=== PATIENT | male | born 1950 | race Hispanic/Latino ===

== ENCOUNTER 2016-09-01 14:04 | Emergency (ER) | payer MEDICARE, OTHER ==
[~2016-09-01] VITALS: Ht 172.7 cm; Wt 113.2 kg
[~2016-09-01 14:04] MED LIST: ACET325T51 PO; AMIT10TA6 PO; ASCO125T PO; ASPI-973 PO; BISA-67 PO; CALC-1009 PO; CHOL500011 PO; COCO1000 PO; CYAN500L3 SL; DEXT1DRO8 BOTH_EYES; FERR325T6 PO; FOLI0.8C PO; KEP500TA PO; LISI10TA PO; LORA10CA PO; LOVA10TA PO; MAGN250T29 PO; MELO-253 PO; METH2.5T PO; MULT-1018 PO; NAPR220C11 PO; OMEP10CA4 PO; POLY17PO6 PO; PRAM0.5T10 PO; PRE10 PO; SERT25TA6 PO; UBID100C25 PO; ZONI100C6 PO; [UNRECOGNIZED DRUG - OTHER] PO
[2016-09-01 14:09] VITALS: BP 116/75; PULSE 67; RESP 16; O2SAT 97
--- NOTE | 2016-09-01 15:55 | ED.REPORT ---
HPI-Headache Date of Service Sep 01, 2016 ED Provider: Sathya Guillen PA-C Ross is a 66-year-old male with a history of epilepsy, hypertension, leukemia , brain aneurysm, OH, CVA, sepsis, low back pain who presents with a chief complaint of headache. Patient states that his experience roughly 2 months of headache that waxes and wanes but never completely resolves. His pain was especially bad today prior to presentation. At presentation rates at 2/10. Associated with photophobia. Denies fever, chills, malaise, upper respiratory symptoms, abdominal pain, vomiting. Patient reports a history of similar headaches in 2010 that ended following brain surgery for epilepsy in which an aneurysm ruptured. Nursing Notes Stated Complaint: HEADACHES Chief Complaint: Headache Nursing Notes Reviewed: Yes Allergies: Coded Allergies: latex (Verified Allergy, Severe, RASH, 04/26/16) oxycodone (Verified Allergy, Severe, RASH, 04/26/16) azithromycin (Verified Allergy, Intermediate, 05/02/16) Penicillins (Verified Allergy, Unknown, UNKNOWN, 04/26/16) codeine (Verified Allergy, Unknown, 09/01/16) hydrocodone (Verified Allergy, Unknown, UNKNOWN, 04/26/16) meperidine (Verified Allergy, Unknown, Rash, 04/26/16) SWEATS SEIZURES HALLUCINATES Uncoded Allergies: CHOCOLATE (Adverse Reaction, Severe, PROFUSE SWEATING, 09/13/13) Scheduled ([aloe nutritional liq]) 3 OZ PO DAILY Amitriptyline (Amitriptyline) 10 Mg Tablet 10-30 MG PO HS Ascorbic Acid (Vitamin C) 125 Mg Tab.chew 125 MG PO DAILY Aspirin (Aspirin) 81 Mg Tablet 81 MG PO HS Bisacodyl (Dulcolax) 5 Mg Tablet.dr 5 MG PO QPM Calcium Carbonate/Vitamin D3 (Calcium 600 + Vit D3 800 Tab) 600 Mg-800 Tablet 1 EACH PO DAILY Cholecalciferol (Vitamin D3) (Vitamin D3) 5,000 Unit Tablet 5,000 UNIT PO DAILY Coconut Oil (Coconut Oil) 1,000 Mg Capsule 1,000 MG PO DAILY Cyanocobalamin (Vitamin B-12) (B-12) 500 Mcg Tab.rapdis 500 MCG SL DAILY Dextran 70/Hypromellose/Pf (Artificial Tears Drops) 1 Each Droperette 2-3 DROP BOTH_EYES TID Ferrous Sulfate (Ferrous Sulfate) 325 Mg Tablet.dr 325 MG PO BID Folic Acid (Folic Acid) 0.8 Mg Capsule 0.8 MG PO DAILY Levetiracetam (Keppra) 500 Mg Tablet 1,500 MG PO BID Lisinopril (Lisinopril) 10 Mg Tablet 10 MG PO DAILY Loratadine (Claritin) 10 Mg Capsule 10 MG PO DAILY Lovastatin (Lovastatin) 10 Mg Tablet 10 MG PO HS Magnesium Oxide (Magnesium) 250 Mg Tablet 250 MG PO BID Meloxicam (Meloxicam) 15 Mg Tablet 15 MG PO daily at 1400 Methotrexate Sodium (Methotrexate) 2.5 Mg Tablet 7.5 MG PO every Multivitamin (Multi Vitamin Daily) 1 Each Tablet 1 EACH PO DAILY Omeprazole (Omeprazole) 10 Mg Capsule.dr 10 MG PO DAILY Ondansetron ODT (Ondansetron ODT) 4 Mg Tab.rapdis 4-8 MG PO QID Polyethylene Glycol 3350 (Miralax) 17 Gm Powd.pack 17 GM PO DAILY Pramipexole Dihydrochloride (Pramipexole Dihydrochloride) 0.5 Mg Tablet 0.5 MG PO HS Prednisone (PredniSONE) 10 Mg Tablet 10 MG PO DAILYWM per oncologist Sertraline HCl (Sertraline) 25 Mg Tablet 25 MG PO DAILY Ubidecarenone (Co Q-10) 100 Mg Capsule 100 MG PO DAILY Zonisamide (Zonisamide) 100 Mg Capsule 200 MG PO BID Scheduled PRN Acetaminophen (Acetaminophen) 325 Mg Tablet 325 MG PO Q4H PRN PRN For Fever Naproxen Sodium (Aleve) 220 Mg Capsule 220 MG PO DAILY PRN PRN For Pain General Time Seen by MD: 15:33 Chief Complaint Headache Sudden in Onset?: No Past Medical History Past Medical History Notes: Oncologist Dr Lopez Admitted March 24-2015 with fever, sepsis-but no specific source definitively identified Past Medical History T cell Large granulous leukemia, on chemo for 16 years (on methotrexate and tapered prednisone) Epilepsy CVA OH HTN Diverticulitis Hiatal hernia Arthritis Chronic lumbar back pain Depression Enlarged prostate Past Surgical History Temporal lobe surgery Bilateral knee replacement TURP Smoking History Former Smoker, Never Smoker Social History Alcohol Use: Denies alcohol use Drug Use: Denies drug use Ambulatory Status Independent Review of Systems General: Denies fever, chills, malaise. HEENT: Admits headache. Denies congestion, sore throat. Respiratory: Denies dyspnea, cough, shortness of breath, wheezing. Cardiovascular: Denies chest pain, palpitations. Gastrointestinal: Denies vomiting, diarrhea, abdominal pain. Otherwise as noted in HPI. Physical Exam General: Well appearing, well developed, well nourished, no acute distress. Head: Atraumatic, normocephalic. No tenderness over temples. Eyes: No scleral icterus or injection. No discharge. Vision grossly intact. ENT: Voice clear, hearing grossly intact. Respiratory: Regular rate and rhythm. Breath sounds present, clear to auscultation and equal bilaterally. No respiratory distress. No increased work of breathing, speaks in complete sentences. Cardiovascular: Regular rate and rhythm, without murmur, gallop or rub. No pedal edema. Gastrointestinal: Abdomen flat and non-tender without guarding or rebound. Bowel sounds normoactive. Skin: Warm and dry. Neurological: Normal gait, heel walk, toe walk, Romberg. Negative pronator drift. Mild ataxia walking heel to toe. Cranial nerves: Vision grossly intact, PERRL, EOMI. Facial motion symmetrical, sensation to light touch over forehead, maxilla and mandible present and equal B /L. Voice clear and fluent, no drooling/pooling of saliva, uvula rises midline. Psychological: Alert and oriented. Speech appropriate, linear and logical. Behavior appropriate. Initial Vital Signs Vital Signs (First) Date Time Temp Pulse Resp B/P Pulse Ox O2 Delivery O2 Flow Rate FiO2 09/01/16 14:09 36.0 67 16 116/75 97 Room Air Initial VS: Reviewed, Vital signs normal Interpretation & Diagnostics Lab Results Interpretation Result Diagram: 09/01/16 1632 09/01/16 1632 Test 09/01/16 16:32 White Blood Count 5.5th/mm3 (3.8-10.1) Red Blood Count 4.21mil/mm3 (4.40-5.80) Hemoglobin 13.4g/dL (13.8-17.2) Hematocrit 39.9% (41.0-50.0) Mean Corpuscular Volume 94.8fL (81-100) Mean Corpuscular Hemoglobin 31.8pg (27.0-35.0) Mean Corpuscular Hemoglobin Concent 33.6% (32.0-37.0) Red Cell Distribution Width 13.9% (12.3-15.4) Platelet Count 161bil/L (150-400) Neutrophils (%) (Auto) 46.3% (40-74) Lymphocytes (%) (Auto) 41.9% (14-46) Monocytes (%) (Auto) 10.5% (4-12) Eosinophils (%) (Auto) 0.9% (0-5) Basophils (%) (Auto) 0.2% (0-3) Sodium Level 137mEq/L (134-144) Potassium Level 4.2mEq/L (3.5-5.2) Chloride Level 102mEq/L (97-108) Carbon Dioxide Level 24mmol/L (18-29) Blood Urea Nitrogen 18mg/dL (8-27) Creatinine 0.81mg/dL (0.76-1.27) Estimat Glomerular Filtration Rate 101mL/min (>59) Glucose Level 100mg/dL (60-99) Calcium Level 9.3mg/dL (8.5-10.1) Hold Rosales Top Tube Received (Received) CT Head Interpretation PROCEDURE: CT BRAIN WITHOUT CONTRAST INDICATIONS: headache IMPRESSION: No acute intracranial abnormality identified. Re-Eval/Medical Decision Med Decision/Clinical Course Discussed the case with Dr. Arnold met with and examined the patient. 66-year-old male presents with a chief complaint of headache. Reports the headache is insidious in onset and has been waxing and waning in intensity over the last 2 months. He suffered an especially bad episode today and decided to come the emergency Department. CT of the brain is normal. Neurological examination is normal. CBC reveals slight anemia and BMP is within acceptable limits. This point I believe a intracranial mass or subarachnoid hemorrhage is highly unlikely. I have low concern for stroke. Patient responded well to 1 L normal saline, metoclopramide and 1000 mg of acetaminophen. He reports complete resolution of his headache. I discussed our findings and believe that we have ruled out immediately dangerous causes of headache with the patient and his . I advised primary care follow-up and gave return precautions. The patient and his understand and her couple with the plan. Discharge & Departure Impression: Primary Impression: Headache Headache type: unspecified Headache chronicity pattern: unspecified pattern Intractability: not intractable Qualified Code: R51 - Headache Disposition: Home Discharge Condition All VS Reviewed: Yes Condition: Stable Patient Instructions: Acute Headache (ED) Additional Instructions: Evaluation in the emergency department for headache. CT scan of the brain was normal. Your neurological examination was also normal. This is reassuring that her headache is unlikely to be caused by bleeding in the brain, mass or stroke. While it we do not know why you had a headache, I believe we have ruled out the immediately dangerous causes headache. Please follow up with your primary care provider as soon as possible to continue investigating.The pain is best treated with 400 mg of ibuprofen (Advil, Motrin) every 6 hours, or 1000 mg of acetaminophen (Tylenol) every 6 hours. These drugs can be taken at the same time for more severe pain. Return to emergency department for any new or worsening symptoms including any different headache, sudden or severe headache, neurological changes. Referrals: Javy Canseco MD (PCP) EDSupervising Provider for APC: Marc Arnold MD Attending Statement I discussed patient with KIERRA Guillen. I was asked to evaluate patient and I saw and evaluated patient independently. In brief, 66-year-old male presenting with 2 months of headaches. No neuro deficits. Normal neurological exam. History of aneurysms in the past. No fevers or meningeal signs symptoms. CT brain is normal. Pain resolved with pain medications. Okay to discharge home with follow-up with primary doctor. Return Precautions given. copies to: Javy Canseco MD, Seth PA-C Sep 01, 2016 15:55 Marc Arnold MD Sep 01, 2016 17:44
[2016-09-01] MEDS ORDERED: 0.9% Sodium Chloride 1,000 ML IV ONE (15:56)
[2016-09-01] MEDS ORDERED: MetoCLOpramide 5 mg/mL 2 mL Inj IVPUSH ONE (16:00)
[2016-09-01] MEDS ORDERED: Acetaminophen IV 1,000 MG in IV Premix 1 EACH IV ONE (16:00)
[2016-09-01 16:37] LABS: BASOPHILS % (AUTO) 0.2 % (0-3); EOSINOPHILS % (AUTO) 0.9 % (0-5); MONOCYTES % (AUTO) 10.5 % (4-12); Mean Corpuscular Hemoglobin 31.8 pg (27.0-35.0); Mean Corpuscular Volume 94.8 fL (81-100); NEUTROPHILS % (AUTO) 46.3 % (40-74); Platelet Count 161 bil/L (150-400)
--- NOTE | 2016-09-01 17:27 | DRSVH ---
PROCEDURE: CT BRAIN WITHOUT CONTRAST INDICATIONS: headache COMPARISON: [facility], CT, CT BRAIN WO CON, 03/25/2016, 1:47. FINDINGS: Prior right temporal parietal craniotomy. Previous scott hole in the left temporal area as well. Area of encephalomalacia involving the right temporal lobe and portion of the parietal lobe with enla rgement of the right lateral ventricle. No acute intracranial abnormality is seen. Mass effect is not evident. No acute loss of huang-white matter interface or evidence for bleeding is seen. IMPRESSION: No acute intracranial abnormality identified. Dictated by: Guru Head M.D. on 09/01/2016 at 17:21 Approved by: Guru Head M.D. on 09/01/2016 at 17:25
[2016-09-01] MEDS ORDERED: ONDA4TAB12 PO (17:44)
[2016-09-01 17:55] VITALS: BP 112/68; PULSE 68; RESP 16; O2SAT 97
[2016-10-25] MEDS ORDERED: COCO120O MC (14:27)
[2016-10-25] MEDS ORDERED: FLAX340P PO (14:27)
[2016-10-25] MEDS ORDERED: BUTA1CAP44 PO (14:30)
[2016-11-30] MEDS ORDERED: LANS30CA14 PO (12:41)
== END 2016-09-01 17:57 | disposition home or self-care (01) ==
LOC: SED 14:04
DX: R51 Headache (principal); I10 Essential (primary) hypertension; C95.90 Leukemia, unspecified not having achieved remission; I25.2 Old myocardial infarction; Z86.73 Personal history of transient ischemic attack (TIA), and cerebral infarction without residual deficits; Z79.82 Long term (current) use of aspirin; Z87.891 Personal history of nicotine dependence; Z91.040 Latex allergy status; Z88.5 Allergy status to narcotic agent; Z88.0 Allergy status to penicillin; Z88.1 Allergy status to other antibiotic agents; Z88.8 Allergy status to other drugs, medicaments and biological substances
CPT/HCPCS: 36415; 70450; 80048; 85025; 96361; 96374; 96375; 99285; G0463; J0131; J2765; J7030

== ENCOUNTER 2016-12-01 13:23 | Day surgery (SDC) | payer MEDICARE, OTHER ==
[~2016-12-01] VITALS: Ht 170.2 cm; Wt 119.8 kg
[~2016-12-01 13:23] MED LIST changes: +COCO120O MC; +FLAX340P PO; +LANS30CA14 PO; +Lactated Ringer's 1,000 ML IV ONE; +ONDA4TAB12 PO
[2016-12-01] MEDS ORDERED: Propofol 10,000 mCg/mL 20 mL Inj ONE (13:24)
[2016-12-01 14:07] VITALS: BP 119/65; PULSE 54; RESP 14; O2SAT 97
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
[2016-12-01 15:34] VITALS: BP 121/73; PULSE 62; RESP 16; O2SAT 98
--- NOTE | 2016-12-01 15:42 | PCM.ENDEGD ---
EGD Date of Service: Dec 01, 2016 Physician Chai Sommers MD Pre Procedure Diagnosis: Melena Post Procedure Dx & Findings: Prominent duodenal fold with duodenal scarring. Healing gastric ulcers and erosions. Healing esophageal ulcer Procedure Esophagogastroduodenoscopy PROCEDURE IN DETAIL: After proper sedation, Olympus video endoscope was inserted into patient's mouth and esophagus was successfully intubated. Scope introduced esophagus. Esophagus showed normal shiny whitish mucosa consistent with squamous cell component. Z line was intact at 40 cm from the incisors. However there was a 3 mm healing esophageal ulcer. This was biopsied. Scope advanced into the stomach. The entire stomach showed atrophy with decreased rugae folds. The antrum, there were multiple healing gastric ulcers which are about at most 5 mm in size. Multiple biopsies taken from the healing ulcers and proximal stomach. There are also some antral deformities. Cardia fundus body antrum pylorus were all visualized. Retroflexion was done. Stomach was easily inflated and deflatable using air. Scope further events to the distal duodenum. Duodenum revealed normal villous structures with normal appearing folds without any mass ulcer erosion. The duodenal bulb, there were some to some deformity from prior ulcers. Prominent folds were noted and these were biopsied. Impression Prominent duodenal fold with duodenal scarring. Healing gastric ulcers and erosions. Healing esophageal ulcer Recommendation Await biopsy Avoid NSAIDs Presedation Assessment Risks and Benefits Informed consent was obtained from the patient after all risks and benefits including but not limited to drug reaction, infection, pain, bleeding, perforation, as well as alternatives were discussed. Patient monitoring Continuous pulse oximetry, cardiac monitoring, blood pressure monitoring, IV access, and oxygen at 2L per nasal cannula. Complications There were no periprocedural complications identified. Post Procedure Plan Post Procedure Recommendations 1. Restrict activities today. 2. Resume normal activities in the morning. 3. Resume medications. 4. GERD behavioral modification: - Avoid fatty, acidic, spicy, large meals - Do not lie down after meals - Do not eat or drink anything for at least 2 1/2 hours before going to bed at night - Discontinue tobacco and alcohol - Decrease or avoid caffeine - Avoid chocolate and mints - Decrease weight - Avoid aspirin and non steroidal anti-inflammatory agents (NSAID) such as Aleve, Advil, Mobic, Naproxen, Ibuprofen, etc 5. Add proton pump inhibitor. Take 30 minutes before 1st meal of the day. 6. Patient informed of normal post procedure side effects as bloating, drowsiness, blood streaking in the stool 7. If gastric biopsy reveal H.pylori, continue with appropriate treatment 8. If small bowel biopsy reveals celiac, continue with appropriate treatment 9. Please don't hesitate to call me with any questions Chai Sommers MD Dec 01, 2016 15:42
--- NOTE | 2016-12-01 15:43 | PCM.ENDCOL ---
Colonoscopy Date of Service: Dec 01, 2016 Physician Chai Sommers MD Pre Procedure Diagnosis: Screening and personal history of colon polyp Post Procedure Dx & Findings: Diverticula hemorrhoids Procedure Colonoscopy PROCEDURE IN DETAIL: Prep adequate Withdrawal time 9 minutes After unremarkable rectal examination the Olympus video colonoscope was inserted patient's anal canal and was advanced to cecum. Landmarks were identified including the ileocecal valve and appendiceal orifice. Scope was withdrawn systematically. Visualized colonic mucosa showed healthy shiny mucosa with normal healthy-appearing vasculature. Multiple diverticuli noted mostly in the sigmoid colon to the right side of the colon. In the rectum retroflexion was done which showed hemorrhoids. Anal canal was inspected carefully on the way out and hemorrhoids noted. Impression Diverticuli Hemorrhoids Personal history of colon polyp Recommendation Repeat colonoscopy 5 years DIverticular diet Presedation Assessment Risks and Benefits Informed consent was obtained from the patient after all risks and benefits including but not limited to drug reaction, infection, pain, bleeding, perforation, as well as alternatives were discussed. Patient monitoring Continuous pulse oximetry, cardiac monitoring, blood pressure monitoring, IV access, and oxygen at 2L per nasal cannula. Complications There were no periprocedural complications identified. Post Procedure Plan Post Procedure Recommendations 1. Restrict activities today. 2. Resume normal activities in the morning. 3. Resume medications. 4. Patient informed of normal post procedure side effects as bloating, drowsiness, blood streaking in the stool. 5. average risk CRCS. If colon polyps come back as: -Hyperplastic- can repeat colonoscopy in 10 years -Tubular adenoma- repeat colonoscopy in 5 years -Tubulovillous/villous adenoma- repeat colonoscopy in 3 years -If any dysplasia- return to clinic as soon as possible 6. Please don't hesitate to call me with any questions. Chai Sommers MD Dec 01, 2016 15:43
[2016-12-01 15:44] VITALS: BP 123/78; PULSE 50; RESP 16; O2SAT 97
[2016-12-01 15:54] VITALS: BP 131/81; PULSE 71; RESP 16; O2SAT 96
--- NOTE | 2016-12-05 17:52 | PATH ---
SURGICAL PATHOLOGY Attending Physician:Chai Sommers M.D. CASE STATUS: Signed Out PATIENT NAME: KATHERINE HEATH JR PID: [id number] : 1950 DATE COLLECTED:12/01/2016 00:00 SPECIMEN: 1: Duodenum, Biopsy 2: Gastric, Biopsy 3: Esophagus, Biopsy CLINICAL HISTORY: MELENA 1). DUODENUM BULB BIOPSY 2). GASTRIC BIOPSY 3). DISTAL ESOPHAGUS BIOPSY FINAL DIAGNOSIS: 1. Duodenal Bulb, Biopsy: Portions of duodenal mucosa with no diagnostic abnormality. Negative for active inflammation, features of sprue, dysplasia or malignancy. 2. Gastric Biopsy: Portion of gastric antral and body-type mucosa with mild chronic gastritis. No definite H. pylori organisms identified by H&E stain. Immunohistochemistry studies pending; results will be reported as an addendum. Negative for intestinal metaplasia, dysplasia and malignancy. 3. Distal Esophagus Biopsy: Squamocolumnar junctional mucosa with no diagnostic abnormality. Negative for intestinal metaplasia. Negative for dysplasia and malignancy. ICD10: K29.7 GROSS DESCRIPTION: The specimen is received in three formalin filled containers labeled with the patient's name. 1). The specimen is sublabeled "duodenum bulb" and consists of 2 portions of tissue which aggregate to 0.2 x 0.2 x 0.2 CM. The specimen is entirely submitted in cassettes 1A. 2). The specimen is sublabeled "gastric" and consists of 4 portions of tissue which aggregate to 0.3 x 0.3 x 0.2 CM. The specimen is entirely submitted in cassette 2A. 3). The specimen is sublabeled "distal esophagus" and consists of a 0.3 x 0.2 x 0.2 CM portion of tissue which is entirely submitted in cassettes 3A. 12/02/2016 [facility] ICD-9 CODES: CPT CODES: 1: 07069 2: 36564, 18674 3: 88299 PROCEDURE/ADDENDA: Addendum SPI Addendum Diagnosis {Not Entered} Addendum Comment IMMUNOHISTOCHEMISTRY RESULTS: 2. Gastric Biopsy: Negative for Helicobacter organisms by immunohistochemistry studies. Electronically Signed Out Luh Arshad MD Electronically Signed Out Luh Arshad MD [facility]., [address] [place] [id number] Technical component performed at [facility], [address], [place], [address]
== END 2016-12-01 23:59 | disposition home or self-care (01) ==
LOC: END 13:23
PROVIDERS: ATTEND Internal Medicine
DX: Z12.11 Encounter for screening for malignant neoplasm of colon (principal); K57.30 Diverticulosis of large intestine without perforation or abscess without bleeding; K64.9 Unspecified hemorrhoids; K25.9 Gastric ulcer, unspecified as acute or chronic, without hemorrhage or perforation; K22.10 Ulcer of esophagus without bleeding; K92.1 Melena; K59.00 Constipation, unspecified; K21.9 Gastro-esophageal reflux disease without esophagitis; G40.219 Localization-related (focal) (partial) symptomatic epilepsy and epileptic syndromes with complex partial seizures, intractable, without status epilepticus; I10 Essential (primary) hypertension; M19.90 Unspecified osteoarthritis, unspecified site; G47.33 Obstructive sleep apnea (adult) (pediatric); G25.81 Restless legs syndrome; F41.8 Other specified anxiety disorders; E66.01 Morbid (severe) obesity due to excess calories; Z96.653 Presence of artificial knee joint, bilateral; Z85.6 Personal history of leukemia; Z86.73 Personal history of transient ischemic attack (TIA), and cerebral infarction without residual deficits; Z80.0 Family history of malignant neoplasm of digestive organs; Z86.010 Personal history of colon polyps; Z79.82 Long term (current) use of aspirin; Z68.41 Body mass index [BMI] 40.0-44.9, adult; Z87.442 Personal history of urinary calculi
CPT/HCPCS: 43239; G0105; J7120

== ENCOUNTER 2017-02-16 08:32 | Day surgery (SDC) | payer MEDICARE, OTHER ==
[~2017-02-16] VITALS: Ht 172.7 cm; Wt 117.8 kg
[2017-02-16] VITALS (8 sets, daily range): BP systolic 115–137; BP diastolic 61–83; PULSE 70–82; RESP 14–17; O2SAT 93–97
[~2017-02-16 08:32] MED LIST changes: +CHOL5000 PO; -CHOL500011 PO; -COCO1000 PO; -COCO120O MC; +COq10; +CYAN500 PO; -CYAN500L3 SL; +DICL100G8 TOPICAL; +FERR-83 PO; -FERR325T6 PO; -FOLI0.8C PO; +FOLI0.8T PO; -KEP500TA PO; +LEVE100014 PO; -LORA10CA PO; +LORA10CA9 PO; -Lactated Ringer's 1,000 ML IV ONE; +Lactated Ringer's 1,000 ML IV SCH; -NAPR220C11 PO; +NAPR220C16 PO; +ONDA-53 PO; -ONDA4TAB12 PO; -PRAM0.5T10 PO; -UBID100C25 PO; +[UNRECOGNIZED DRUG - OTHER]; -[UNRECOGNIZED DRUG - OTHER] PO
[2017-02-16] MEDS ORDERED: fentaNYL-PF 50 mCg/mL 2 mL Inj ONE (08:33)
[2017-02-16] MEDS ORDERED: Propofol 10,000 mCg/mL 20 mL Inj ONE (08:33)
[2017-02-16] MEDS ORDERED: Lactated Ringer's 500 ML IV PRN (09:59)
[2017-02-16] MEDS ORDERED: Lactated Ringer's 1,000 ML IV SCH (09:59)
--- NOTE | 2017-02-16 09:59 | PCM.HPANE ---
Patient Data Date of Service: Feb 16, 2017 (1000) Surgeon Admitting Provider: Attending Provider:Lobo Barriga DO Primary Care Physician:Javy Canseco MD Other Provider:Bryan Lambert Anesthesia Reason for Visit Left Carpal Tunnel Syndrome Ht/WT & BMI Height (Feet): 5 Height (Inches): 8 Weight (Kilograms): 117.84 Body Mass Index 0.00 Allergies Coded Allergies: latex (Verified Allergy, Severe, RASH, 02/08/17) oxycodone (Verified Allergy, Severe, RASH, 02/08/17) azithromycin (Verified Allergy, Intermediate, 02/08/17) Penicillins (Verified Allergy, Unknown, UNKNOWN, 02/08/17) adhesive tape (Verified Allergy, Unknown, 02/16/17) codeine (Verified Allergy, Unknown, 02/08/17) hydrocodone (Verified Allergy, Unknown, UNKNOWN, 02/08/17) meperidine (Verified Allergy, Unknown, Rash, 02/08/17) SWEATS SEIZURES HALLUCINATES Uncoded Allergies: CHOCOLATE (Adverse Reaction, Severe, PROFUSE SWEATING, 09/13/13) Past Anesthesia History Anesthesia History: Positive for:: Difficult Intubation (THis patient has a history of difficult intubation by Dr Hernandez for a urology ), Denies:: Anesthesia Reactions, Fam Anesthesia Reaction, Fam Malignant Hypertherm, Malignant Hyperthermia Diabetes History Hx Diabetes?: No MRSA MRSA: No Medications Blood Thinner: Aspirin Hypertension Medication: Yes Home Meds Incl Beta Eladio: No Reported Medications [aloe nutritional liq] No Conflict Check1 Oz DAILY 02/08/17 Zonisamide 100 Mg Jcyuplg950 Mg PO BID 02/08/17 [COq10] No Conflict Akiyw407 Mg DAILY 02/08/17 Sertraline HCl (Sertraline)25 Mg Wwmhzq64 Mg PO DAILY 30 Days Ref 0 02/08/17 Prednisone (PredniSONE)10 Mg Heiipa35 Mg PO DAILY Ref 0 02/08/17 Polyethylene Glycol 3350 (Miralax)17 Gm Powd.pack17 Gm PO DAILY 02/08/17 Ondansetron 4 Mg Tablet4-8 Mg PO QID PRN For Nausea 02/08/17 Omeprazole 10 Mg Capsule.dr10 Mg PO DAILY Ref 0 02/08/17 Naproxen Sodium 220 Mg Hpbfvqp656 Mg PO BID PRN For Pain Ref 0 02/08/17 Multivitamin (Multi Vitamin Daily)1 Each Tablet1 Each PO DAILY 30 Days Ref 0 02/08/17 Methotrexate Sodium (Methotrexate)2.5 Mg Tablet7.5 Mg PO 02/08/17 Meloxicam 15 Mg Jeurlw89 Mg PO DAILY 30 Days Ref 0 02/08/17 Magnesium Oxide (Magnesium)250 Mg Wetwso260 Mg PO BID 02/08/17 Lovastatin 10 Mg Nhvvqx74 Mg PO HS #30 TABLET Ref 0 02/08/17 Loratadine 10 Mg Tpxecds59 Mg PO DAILY 02/08/17 Lisinopril 10 Mg Qosuah61 Mg PO DAILY 30 Days Ref 0 02/08/17 Levetiracetam (Keppra)1,000 Mg Tablet1,500 Mg PO BID 02/08/[address] (Prevacid)30 Mg Jxfgkka84 Mg PO DAILY Ref 0 02/08/17 Folic Acid 0.8 Mg Tablet0.8 Mg PO DAILY 02/08/17 Flaxseed 340 Gm Powder2 Tbs PO BID 02/08/17 Ferrous Sulfate 325 Mg Vgvazk943 Mg PO DAILY 30 Days Ref 0 02/08/17 Diclofenac Gel (Voltaren Gel)100 Gm Tube1 Applic TOPICAL QID PRN For Pain #1 TUBE 02/08/17 Dextran 70/Hypromellose/Pf (Artificial Tears Drops)1 Each Droperette1 Drop BOTH_ EYES PRN dry eyes #1 BOTTLE 02/08/17 Cyanocobalamin (Vitamin B12)500 Mcg Ipzdvc307 Mcg PO DAILY 02/08/17 Cholecalciferol (Vitamin D3) (Vitamin D3)5,000 Unit Capsule5,000 Unit PO DAILY 02/08/17 Calcium Carbonate/Vitamin D3 (Calcium 600 + Vit D3 800 Tab)600 Mg-800 Tablet1 Each PO DAILY 02/08/17 Bisacodyl (Dulcolax)5 Mg Tablet.dr5 Mg PO DAILY PRN For Constipation Ref 0 02/08/17 Aspirin 81 Mg Kqzeap32 Mg PO DAILY Ref 0 02/08/17 Ascorbic Acid (Vitamin C)125 Mg Tab.gqph043 Mg PO DAILY 02/08/17 Acetaminophen 325 Mg Fqfkpu834 Mg PO Q4H PRN For Fever Ref 0 02/08/17 Amitriptyline 10 Mg Nesynt27 Mg PO HS Ref 0 02/08/17 History History of ENT Problems?: Yes HEENT History: Positive for:: Cataracts (douglas surgery ) Difficult Intubation (THis patient has a history of difficult intubation by Dr Hernandez for a urology ) Dysphagia ("difficulty swallowing large pills" sometimes) Sinus Problem (HAY FEVER, DUST, indoor/outdoor allergies) Denies:: Hearing Problem Denture Type: None Teeth Condition: Within Normal Limits Hx of Heart Problems?: Yes Cardiovascular History: Positive for:: Edema (2013) Hypertension Irregular Heartbeat Denies:: AICD Cardiac Surgery Chest Pain Congestive Heart Failure Heart Murmur Pacemaker Thrombophlebitis Valvular Heart Disease Other Cardiac History: 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 Hx of Respiratory Problem?: Yes Respiratory History: Positive for:: Cough Dyspnea (with exertion) Pneumonia (2005) Use of C-PAP Machine Denies:: Asthma COPD Chest Surgery Emphysema Hemoptysis Oxygen Administration Tuberculosis Hx Neurologic Problems?: Yes Neurological History: Positive for:: 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 Pressure Ulcers Hx Musculoskeletal Problems?: Yes Musculoskeletal History: Positive for:: Back Injury (lumbar/sacral herniated disc 2002) Joint Replacement (TKA bilateral) Musculoskeletal Trauma (left carpal tunnel current admission problem) Hx of Psycho/Social Problems?: Yes Psycho Social History: Positive for:: Anxiety Hx Depression Denies:: Bipolar Disorder Suicide Attempt Hx Surgeries?: Yes (back, brain x3, bilateral knee,nose, kidney stones) Hx Any Other Health Problems?: Yes Other History: Positive for:: Cancer (lymphocytic leukemia) Hospitalization Denies:: Endocrine Disease Thyroid Disease History Blood Transfusions: Positive for:: Blood Transfusions Denies:: Blood Transfuse Reaction Hx Diabetes: No Hx Alcohol Use: Yes (stopped drinking 30 years ago due to seizures)Hx Substance Use: No Smoking Status: Former Smoker Never Smoker Have You Smoked inLast 12 mo: No Stop/Bang S-Snoring: Do You Snore Loudly: No T-Tired: feel tired, fatigued: Yes O-Obsered: Observed not breath: No P-Blood Pressure: treated: Yes B- Body Mass Index > 35 kg/m2: Yes A- Age over 50: Yes N- Neck Large Circumference: Yes G- Gender Male: Yes LIV Total Score: 6 LIV Risk Assessment: High Risk, =/>3 Yes Risk Assessment Category Category 1A: Patient has history of documented sleep apnea, and HAS NOT received any narcotic, sedative or anesthesia administration during this stay. Category 1B: Patient has history of documented sleep apnea, and HAS received any narcotic , sedative or anesthesia administration during this stay Category 2: Patient has SUSPECTED Obstructive Sleep Apnea, and HAS received any narcotic , sedative or anesthesia administration during this stay. Category 3: Patient has SUSPECTED Obstructive Sleep Apnea and HAS NOT received narcotic, sedative or anesthesia administration during this stay. Category 4: Outpatient in Procedural Areas with known sleep apnea or who screen positive for High Risk via the STOP/BANG questionnaire. Exam Exam Vital Signs Vital Signs Date Time Temp Pulse Resp B/P Pulse Ox O2 Delivery O2 Flow Rate FiO2 02/16/17 08:53 36.4 75 15 134/72 96 Room Air General Appearance: Alert, Oriented X3 HEENT/AIRWAY: MP 3, Neck Movement (FULL) Lungs: Clear to Auscultation Heart: Exam Unremarkable Plan Impression Patient chart reviewed, patient interviewed and anesthestic plan with risks, benefits, and alternatives discussed, and informed consent obtained. NPO per Anesth. Guidelines: Yes ASA Physical Status: ASA3 Severe Disease Anesthetic Plan: GA Bene/Risks/Altern/Consents: Yes HP Complete Prior to Induction: Yes Costa Wray MD Feb 16, 2017 09:59
[2017-02-16] MEDS ORDERED: MetoCLOpramide 5 mg/mL 2 mL Inj IVPUSH PRN (10:00)
[2017-02-16] MEDS ORDERED: fentaNYL-PF 50 mCg/mL 2 mL Inj IVPUSH PRN (10:00)
[2017-02-16] MEDS ORDERED: Phenylephrine 10,000 mCg/mL Inj IVPUSH PRN (10:00)
[2017-02-16] MEDS ORDERED: Ondansetron 2 mg/mL 2 mL Inj IVPUSH PRN (10:00)
[2017-02-16] MEDS ORDERED: Dexamethasone 4 mg/mL Inj IVPUSH PRN (10:00)
[2017-02-16] MEDS ORDERED: EPHEDrine Sulfate 50 mg/mL Inj IVPUSH PRN (10:00)
[2017-02-16] MEDS ORDERED: Lactated Ringer's 1,000 ML IV ONE (10:09)
[2017-02-16] MEDS ORDERED: Lidocaine 1%-Epi 1:100,000 20 mL Inj INJ ONE (10:25)
--- NOTE | 2017-02-16 10:43 | PCM.ANEP1 ---
Post Anesthesia PACU Phase 1 Assessment Vital Signs 137/80, 801, 20, 93%, 37.0 Vital Signs Date Time Temp Pulse Resp B/P Pulse Ox O2 Delivery O2 Flow Rate FiO2 02/16/17 08:53 36.4 75 15 134/72 96 Room Air Anesthetic Administered: GA Level of Alertness: Awake, talking VENCES's with Equal Strength: Yes Pain: No Nausea or Vomiting: No CV Function & Hydration Stable: Yes Airway Device: NONE Lungs: Clear to Auscultation Dermatome Level: Full Sensation Summary UNEVENTFUL GA PACU Phase 2 Assessment Complications: No Follow up Care: No Patient Instructions Provided: N/A Costa Wray MD Feb 16, 2017 10:43
--- NOTE | 2017-02-17 08:32 | OP ---
[address] [address] OPERATIVE REPORT PATIENT: KATHERINE HEATH : 1950 MR#: [id number] ADMIT: 02/16/2017 JOB ID: [id number] DATE OF SURGERY: 02/16/2017 PREOPERATIVE DIAGNOSIS(ES): Left carpal tunnel syndrome. POSTOPERATIVE DIAGNOSIS(ES): Left carpal tunnel syndrome. PROCEDURE: Left open carpal tunnel release. SURGEON: Lobo Barriga D.O. ANESTHESIA: General. HISTORY: The patient is a pleasant 67-year-old male with longstanding history of left hand pain and paresthesias. He had failed conservative treatment with nighttime bracing for carpal tunnel syndrome and demonstrated electrodiagnostic findings confirming carpal tunnel syndrome. I discussed with the patient as well as his the risks, benefits, alternatives and indications to proceed with a left open carpal tunnel release. He understood the risks include, but not limited to, neurovascular injury, tendon injury, infection, failure of fixation, stiffness, persistent pain, all of which may require further intervention. The patient had all questions answered. Consent was signed and placed in the chart. PROCEDURE IN DETAIL: The patient was brought to the operative suite and placed supine on the operating table. Surgical time-out was performed. Everyone in the room was in agreement. After appropriate anesthesia was obtained, a left upper arm tourniquet was applied, and the left upper extremity was prepped and draped in a sterile fashion. Left upper extremity was then exsanguinated. Tourniquet inflated to 250 mmHg. A standard 2 cm incision was made in line with the radial aspect of the ring finger and the ulnar aspect of the palmaris longus. The incision was kept distal to the wrist crease and proximal to Cameron cardinal line. Subcutaneous tissues were dissected. Bipolar electrocautery utilized to maintain hemostasis throughout the procedure. The palmar fascia was first identified and incised longitudinally in line with the skin incision followed by exposure of the underlying transverse carpal ligament. The transverse carpal ligament was released in its entirety to include the distal extent of the antebrachial fascia. Copious irrigation was performed followed by closure of skin with 5-0 nylon in a simple interrupted fashion. The patient was then placed in a bulky soft dressing. ESTIMATED BLOOD LOSS: Less than 1 cc. COMPLICATIONS: None. DISPOSITION: The patient tolerated the procedure well. Anesthesia was reversed. The patient was transferred back to the recovery room. POSTOPERATIVE PLAN: The patient will followup in my office in two weeks. We will remove the patient's sutures at that time and have him start working on range of motion and scar mobilization.
== END 2017-02-16 23:59 | disposition home or self-care (01) ==
LOC: SAS 08:32
PROVIDERS: ATTEND Orthopaedic Surgery
DX: G56.02 Carpal tunnel syndrome, left upper limb (principal); I25.10 Atherosclerotic heart disease of native coronary artery without angina pectoris; Z86.73 Personal history of transient ischemic attack (TIA), and cerebral infarction without residual deficits; G47.33 Obstructive sleep apnea (adult) (pediatric); I10 Essential (primary) hypertension; G47.00 Insomnia, unspecified; K21.9 Gastro-esophageal reflux disease without esophagitis; E78.5 Hyperlipidemia, unspecified; G25.81 Restless legs syndrome; E66.9 Obesity, unspecified; Z68.38 Body mass index [BMI] 38.0-38.9, adult
CPT/HCPCS: 64721; J2405; J2704; J3010; J7120